=== PATIENT | female | born 1970 | race African-American/Black ===

== ENCOUNTER 2019-06-10 16:50 | Emergency (ER) | payer OTHER ==
[2019-06-10] MEDS ORDERED: Sodium Chloride 0.9% 1,000 ML IV ONE (16:51)
--- NOTE | 2019-06-10 16:57 | EDM.PDOC ---
ED HPI GENERAL MEDICAL PROBLEM <Jill Gutierrez - Last Filed: 06/10/19 19:10> - General Source of Information: Reports: Patient History Limitations: Reports: No Limitations - History of Present Illness Onset: Today <Monique Hoskins - Last Filed: 06/15/19 10:07> - General Stated Complaint: TRAUMA ALERT Time Seen by Provider: 06/10/19 16:51 - History of Present Illness INITIAL COMMENTS - FREE TEXT/NARRATIVE: I am making an addendum as I have assumed care of patient. Patient was offered admission for observation but she declines at this time. Discussed the risks versus benefits of going home versus admission and patient expresses understanding and declines admission. Discussed the importance for follow-up with a primary care provider. Patient denies any other questions or concerns at this time. (Jill Gutierrez) HISTORY AND PHYSICAL: Trauma Alert was called upon patient arrival due to fall and taking baby aspirin. Dr Sanchez involved in this case. History of present illness: Patient is a 49-year-old female who presents to the emergency room after a syncopal event. She works for [employer]; and states that the cab and of the vehicle is very hot. She went to the back of the vehicle to look for a package when she had a syncopal event. She fell from standing height. Was brought to the emergency room for evaluation. She currently is complaining of bilateral leg discomfort/weakness. She states this morning she had been drinking plenty of fluids although may have not been eating as much as she should have. Patient denies any fever, chills, headache, change in vision, syncope or near syncope. Denies any chest pain, back pain, shortness of breath or cough. Denies any abdominal pain, nausea, vomiting, diarrhea, constipation or dysuria. Has not noted any blood in urine or stool. Patient has been eating and drinking appropriately. Past medical history of hypertension, does take a daily baby aspirin. Review of systems: As per history of present illness and below otherwise all systems reviewed and negative. Past medical history: As per history of present illness and as reviewed below otherwise noncontributory. Surgical history: As per history of present illness and as reviewed below otherwise noncontributory. Social history: See social history for further information Family history: As per history of present illness and as reviewed below otherwise noncontributory. Physical exam: General: Well-developed and well-nourished 49-year-old female. Alert and oriented. Nontoxic appearing and in no acute distress. HEENT: Nontender with palpation, normocephalic, pupils equal and reactive bilaterally, negative for conjunctival pallor or scleral icterus, mucous membranes moist, TMs normal bilaterally, throat clear, neck supple, nontender, trachea midline. No drooling or trismus noted. No meningeal signs. No hot potato voice noted. Lungs: Clear to auscultation, breath sounds equal bilaterally, chest nontender. Heart: Tachycardic - S1S2, regular rate and rhythm without overt murmur Abdomen: Soft, nondistended, nontender. Negative for masses or hepatosplenomegaly. Negative for costovertebral tenderness. Pelvis: Stable nontender. Genitourinary/Rectal: Deferred. Skin: Intact, warm, dry. No lesions or rashes noted. C-spine/Back: No pinpoint vertebral tenderness upon palpation. No crepitus, step -offs or obvious deformities. Patient is ambulatory into the emergency room without difficulty or deficit. Able to rock back on heels and walk on toes. Denies any urinary or fecal incontinence. Denies any numbness, tingling or saddle paresthesia. Extremities: Moves all extremities per self without difficulty or deficits, negative for cords or calf pain. Nontender with palpation to bilateral upper and lower extremities. Neurovascular unremarkable. Neuro: Awake, alert, oriented. Cranial nerves II through XII unremarkable. Cerebellum unremarkable. Motor and sensory unremarkable throughout. Exam nonfocal. Notes: Upon reevaluating the patient she is now complaining of some lumbar back pain and has some muscular tenderness bilaterally to the low lumbar region. States the pain radiates into her left hip. is now at bedside. ESTELLA Mishra - will follow up on remaining labs and imaging. Diagnostics: CBC, CMP, UA, Troponin, EKG, CXR, Pelvis x-ray, orthostatic vital signs Therapeutics: IV fluids Prescription: Flexeril (#20) Diclofenac (#30) Impression: Syncope Sciatica Plan: 1. The medication you received today does cause drowsiness, so do not drive for the remaining day 2. When resting please lay on a flat firm surface. Limit your immobility to prevent muscle stiffness. Get up to ambulate/move around/gentle stretching multiple times throughout the day. May alternate heat and ice to the painful areas 3. Tylenol as needed for back pain. Otherwise take the prescribed Flexeril and diclofenac as directed. Diclofenac is an anti-inflammatory so do not take any additional NSAIDs with this medication, such as ibuprofen or Aleve. Flexeril as a muscle relaxant, this medication may cause drowsiness a do not take it will driving her needing to be functioning outside of the house. 4. Please follow-up with your primary care provider as we discussed. Return to the ED as needed and as discussed. Definitive disposition and diagnosis as appropriate pending reevaluation and review of above. (Monique Hoskins) - Related Data Allergies Allergy/AdvReac Type Severity Reaction Status Date / Time acetaminophen [From Percocet] Allergy Itching Verified 06/11/19 19:38 oxycodone [From Percocet] Allergy Itching Verified 06/11/19 19:38 Home Meds: Home Meds Aspirin 81 mg PO DAILY 06/11/19 [History] Lisinopril 40 mg PO DAILY 06/11/19 [History] ED ROS GENERAL - Review of Systems Review Of Systems: ROS reveals no pertinent complaints other than HPI. <Monique Hoskins - Last Filed: 06/15/19 10:07> - Physical Exam Exam: See Below (See dictation) <Monique Hoskins - Last Filed: 06/15/19 10:07> - Vital Signs Last Recorded V/S: Last Vital Signs Temp 97.2 F 06/10/19 19:20 Pulse 102 H 06/10/19 19:20 Resp 18 06/10/19 19:20 BP 124/84 06/10/19 19:20 Pulse Ox 98 06/10/19 19:20 Orthostatic Blood Pressure [ 120/82 Standing] Orthostatic Blood Pressure [ 116/80 Sitting] Orthostatic Blood Pressure [ 122/75 Supine] - Orders/Labs/Meds Labs: Laboratory Tests 06/10/19 06/10/19 Range/Units 17:21 17:21 WBC 12.53 H (4.0-11.0) K/uL RBC 4.52 (4.30-5.90) M/uL Hgb 12.5 (12.0-16.0) g/dL Hct 38.4 (36.0-46.0) % MCV 85.0 (80.0-98.0) fL MCH 27.7 (27.0-32.0) pg MCHC 32.6 (31.0-37.0) g/dL RDW Std Deviation 48.2 (28.0-62.0) fl RDW Coeff of Michelle 16 H (11.0-15.0) % Plt Count 319 (150-400) K/uL MPV 9.70 (7.40-12.00) fL Neut % (Auto) 74.8 (48.0-80.0) % Lymph % (Auto) 18.9 (16.0-40.0) % [place] % (Auto) 6.0 (0.0-15.0) % Eos % (Auto) 0.1 (0.0-7.0) % Baso % (Auto) 0.2 (0.0-1.5) % Neut # (Auto) 9.4 H (1.4-5.7) K/uL Lymph # (Auto) 2.4 (0.6-2.4) K/uL [place] # (Auto) 0.8 (0.0-0.8) K/uL Eos # (Auto) 0.0 (0.0-0.7) K/uL Baso # (Auto) 0.0 (0.0-0.1) K/uL Nucleated RBC % 0.0 /100WBC Nucleated RBCs # 0 K/uL Sodium 139 (136-145) mmol/L Potassium 4.2 (3.5-5.1) mmol/L Chloride 102 (98-107) mmol/L Carbon Dioxide 22.2 (21.0-32.0) mmol/L BUN 17 (7.0-18.0) mg/dL Creatinine 0.9 (0.6-1.0) mg/dL Est Cr Clr Drug Dosing TNP Estimated GFR (MDRD) > 60.0 ml/min Glucose 93 (74-106) mg/dL Calcium 9.4 (8.5-10.1) mg/dL Total Bilirubin 0.4 (0.2-1.0) mg/dL AST 13 L (15-37) IU/L ALT 15 (14-63) IU/L Alkaline Phosphatase 73 (46-116) U/L Troponin I < 0.050 (0.000-0.056) ng/mL Total Protein 9.1 H (6.4-8.2) g/dL Albumin 4.3 (3.4-5.0) g/dL Globulin 4.8 H (2.6-4.0) g/dL Albumin/Globulin Ratio 0.9 (0.9-1.6) Meds: Medications Discontinued Medications Generic Name Dose Route Start Last Admin Trade Name Crystal PRN Reason Stop Dose Admin Sodium Chloride 1,000 mls @ 999 mls/hr 06/10/19 16:51 06/10/19 17:50 Normal Saline IV 06/10/19 17:51 999 mls/hr .Bolus ONE Administration Morphine Sulfate 2 mg 06/10/19 17:35 06/10/19 17:51 Morphine IVPUSH 06/10/19 17:36 Not Given ONETIME ONE Ondansetron HCl 4 mg 06/10/19 17:35 06/10/19 17:50 Zofran IVPUSH 06/10/19 17:36 4 mg ONETIME ONE Administration Departure - Departure Time of Disposition: 19:11 <Jill Gutierrez - Last Filed: 06/10/19 19:10> <Monique Hoskins - Last Filed: 06/15/19 10:07> - Departure Disposition: Home, Self-Care 01 Clinical Impression: Syncope Qualifiers: Syncope type: heat syncope Encounter type: initial encounter Qualified Code(s) : T67.1XXA - Heat syncope, initial encounter Sciatica Qualifiers: Laterality: left Qualified Code(s): M54.32 - Sciatica, left side - Discharge Information Instructions: Syncope, [id number] Referrals: PCP,Unknown [Primary Care Provider] - Forms: ED Department Discharge Additional Instructions: The following information is given to patients seen in the emergency department who are being discharged to home. This information is to outline your options for follow-up care. We provide all patients seen in our emergency department with a follow-up referral. The need for follow-up, as well as the timing and circumstances, are variable depending upon the specifics of your emergency department visit. If you don't have a primary care physician on staff, we will provide you with a referral. We always advise you to contact your personal physician following an emergency department visit to inform them of the circumstance of the visit and for follow-up with them and/or the need for any referrals to a consulting specialist. The emergency department will also refer you to a specialist when appropriate. This referral assures that you have the opportunity for follow-up care with a specialist. All of these measure are taken in an effort to provide you with optimal care, which includes your follow-up. Under all circumstances we always encourage you to contact your private physician who remains a resource for coordinating your care. When calling for follow-up care, please make the office aware that this follow-up is from your recent emergency room visit. If for any reason you are refused follow-up, please contact the [facility] Emergency Department at and asked to speak to the emergency department charge nurse. [facility] [address] [place] [address] [place] [address] 1. The medication you received today does cause drowsiness, so do not drive for the remaining day 2. When resting please lay on a flat firm surface. Limit your immobility to prevent muscle stiffness. Get up to ambulate/move around/gentle stretching multiple times throughout the day. May alternate heat and ice to the painful areas 3. Tylenol as needed for back pain. Otherwise take the prescribed Flexeril and diclofenac as directed. Diclofenac is an anti-inflammatory so do not take any additional NSAIDs with this medication, such as ibuprofen or Aleve. Flexeril as a muscle relaxant, this medication may cause drowsiness a do not take it will driving her needing to be functioning outside of the house. 4. Please follow-up with your primary care provider as we discussed. Return to the ED as needed and as discussed.
[2019-06-10] MEDS ORDERED: Morphine 2 MG/ML Syringe IVPUSH ONE (17:35)
[2019-06-10] MEDS ORDERED: Ondansetron 4 MG/2 ML SDV IVPUSH ONE (17:35)
[2019-06-10 17:57] LABS: CHLORIDE,CL 102 mmol/L (98-107); SODIUM,NA 139 mmol/L (136-145)
--- NOTE | 2019-06-10 18:01 | CT ---
INDICATION: Syncopal episode. COMPARISON: None available. TECHNIQUE: CT examination of the head was performed with 3 mm thick axial sections without intravenous contrast. Images were obtained from the vertex of the skull through the skull base, and I examined the images with the brain and bone windows. Please note that all CT scans at this facility use dose modulation, iterative reconstruction, and/or weight-based dosing when appropriate to reduce radiation dose to as low as reasonably achievable. FINDINGS: : The brain is normal in appearance for the patient`s age on today`s study, with no sign of mass lesion, mass effect, hemorrhage, or edema. There is heavy calcification of the left anterior falx, possibly meningioma. This measures 1.6 x 0.6 x 1.4 centimeters. It produces no mass effect upon the adjacent brain. The ventricles and sulci are normal in appearance for the patient`s age. The visualized portions of the orbits are normal in appearance. The visualized portions of the paranasal sinuses and mastoids are clear. The osseous structures are normal in their appearance with no sign of abnormality in the skull base or calvarium. IMPRESSION: Possible flat meningioma located along the right anterior falx produces no mass effect upon the adjacent brain. Otherwise normal noncontrast CT of the head for the patient`s age. Please note that all CT scans at this facility use dose modulation, iterative reconstruction, and/or weight-based dosing when appropriate to reduce radiation dose to as low as reasonably achievable. Dictated by Brayden Kelley MD @ Jun 10 2019 5:56PM Signed by Dr. Brayden Kelley @ Jun 10 2019 6:00PM
--- NOTE | 2019-06-10 18:03 | CR ---
HISTORY: Pain after fall COMPARISON: None available. FINDINGS: A single AP view of the pelvis shows no sign of fracture or dislocation. The hips are normal in appearance with no significant degenerative changes. The inferior lumbar spine is normal in appearance. The soft tissues of the pelvis are unremarkable. IMPRESSION: Normal examination of the pelvis. Dictated by Brayden Kelley MD @ Jun 10 2019 5:56PM Signed by Dr. Brayden Kelley @ Jun 10 2019 6:01PM
--- NOTE | 2019-06-10 18:03 | CR ---
INDICATION: Syncopal episode. Pain after fall. COMPARISON: None available. FINDINGS: An erect single view of the chest was obtained at 1706 hours. The lungs are clear. No focal or diffuse infiltrates are present. The heart is normal in size. The mediastinum is normal in appearance. The osseous structures are normal in appearance for the patient`s age. A few surgical clips are seen at the base of the neck on the right, superimposed over the right apex. IMPRESSION: No active disease seen in the chest. Dictated by Brayden Kelley MD @ Jun 10 2019 5:56PM Signed by Dr. Brayden Kelley @ Jun 10 2019 6:02PM
--- NOTE | 2019-06-10 19:03 | CR ---
HISTORY: Pain after fall COMPARISON: None available. FINDINGS: The lumbar spine was examined with AP, lateral, and lateral spot views for a total of three views. There is minimal scoliosis of the thoracolumbar spine convex towards the right. There is no sign of fracture or subluxation. The vertebral bodies are normal in height and they are in anatomic alignment. The disc spaces are normal in height as well. The visualized bony pelvis and bowel gas pattern are normal in appearance. IMPRESSION: Minimal scoliosis of the thoracolumbar spine convex towards the right. Otherwise normal lumbar spine. Dictated by Brayden Kelley MD @ Jun 10 2019 6:59PM Signed by Dr. Brayden Kelley @ Jun 10 2019 7:01PM
== END 2019-06-10 19:20 | disposition home or self-care (01) ==
LOC: MW.ED 16:50
DX: T67.1XXA Heat syncope, initial encounter (principal); M54.32 Sciatica, left side; W19.XXXA Unspecified fall, initial encounter
CPT/HCPCS: 36415; 70450; 71045; 72100; 72170; 80053; 84484; 85025; 93005; 96361; 96374; 99285; J2405; J7040; 99284